=== PATIENT | female | born 1935 | race Caucasian/White ===

== ENCOUNTER → 2016-11-30 | Outpatient (CLI) | payer OTHER, MEDICARE ==
[~2016-11-30] MED LIST: CARV3.12 PO; CPR500 PO; FLNIN NAE; ONDA8TAB7 PO; PRLSR20 PO; SYN75 PO; [UNRECOGNIZED DRUG - CODE] NAE; [UNRECOGNIZED DRUG - CODE] RE
[2016-11-30 10:38] LABS: ALB/GLOB RATIO 1.2 (0.9-2); ALKALINE PHOSPHATASE 86 U/L (45-117); ALT/SGPT 26 U/L (12-78); AST/SGOT 14 U/L (15-37); BLOOD UREA NITROGEN 18 mg/dl (7-18); BUN/CREATININE RATIO 17.9 (10-20); CARBON DIOXIDE 27 mmol/L (21-32); CHLORIDE 106 mmol/L (98-107); CREATININE 0.99 mg/dl (0.60-1.20); GLUCOSE 114 mg/dl (70-99); HDL CHOLESTEROL 56 mg/dl; POTASSIUM 4.3 mmol/L (3.5-5.1); SODIUM 140 mmol/L (136-145)
[2016-11-30 10:50] LABS: CHOLESTEROL 215 mg/dl (0-200); CHOLESTEROL/HDL RATIO 3.8; LDL CHOLESTEROL CALCULATED 128 mg/dl; TRIGLYCERIDES 157 mg/dl (0-150); VERY LOW DENSITY LIPOPROT CALC 31 mg/dl
== END | disposition home or self-care (01) ==
LOC: C.LAB1850 08:31
PROVIDERS: ATTEND Nurse Practitioner Adult Health
DX: E78.5 Hyperlipidemia, unspecified (principal); E03.9 Hypothyroidism, unspecified

== ENCOUNTER → 2016-12-15 | Outpatient (CLI) | payer OTHER, MEDICARE | END | disposition home or self-care (01) | LOC: C.PATHSPEC 16:34 | PROVIDERS: ATTEND Dermatology | DX: B07.9 Viral wart, unspecified (principal); L82.1 Other seborrheic keratosis ==

== ENCOUNTER → 2017-02-02 | Outpatient (CLI) | payer OTHER, MEDICARE | END | disposition home or self-care (01) | LOC: C.PATHSPEC 16:58 | PROVIDERS: ATTEND Dermatology | DX: L82.1 Other seborrheic keratosis (principal) ==

== ENCOUNTER → 2017-04-05 | Outpatient (CLI) | payer OTHER, MEDICARE ==
[2017-04-05 09:38] LABS: BASO % 0.4 %; BASO ABS # 0.02 K/uL (0-0.2); COMPLETE YES; EOS % 3.5 %; HEMATOCRIT 49.1 % (37-47); IG% 0.2 %; LYMPH % 34.9 %; LYMPH ABS # 1.91 K/uL (1.2-3.4); MEAN CELL VOLUME 89.1 fL (80-100); MEAN CORPUSCULAR HEMOGLOBIN 28.7 pg (25-34); MEAN CORPUSCULAR HGB CONC 32.2 g/dl (32-36); MEAN PLATELET VOLUME 10.6 fL (7.4-10.4); MONO % 10.6 %; NEUT % 50.4 %; PLATELET COUNT 239 K/uL (130-400); RED BLOOD COUNT 5.51 M/uL (4.2-5.4); WHITE BLOOD COUNT 5.48 K/uL (4.8-10.8)
[2017-04-05 09:59] LABS: ESTIMATED AVERAGE GLUCOSE 120 mg/dl; HA1C FLAG Normal (Normal)
[2017-04-05 10:05] LABS: ALT/SGPT 23 U/L (12-78); BLOOD UREA NITROGEN 18 mg/dl (7-18); BUN/CREATININE RATIO 16.3 (10-20); CALCIUM 9.2 mg/dl (8.5-10.1); CARBON DIOXIDE 32 mmol/L (21-32); CHLORIDE 102 mmol/L (98-107); CHOLESTEROL 223 mg/dl (0-200); GLUCOSE 101 mg/dl (70-99); POTASSIUM 4.1 mmol/L (3.5-5.1); SODIUM 139 mmol/L (136-145); TRIGLYCERIDES 209 mg/dl (0-150); VERY LOW DENSITY LIPOPROT CALC 42 mg/dl
[2017-04-05 10:18] LABS: ALB/GLOB RATIO 1.1 (0.9-2); ALKALINE PHOSPHATASE 81 U/L (45-117); AST/SGOT 14 U/L (15-37); CHOLESTEROL/HDL RATIO 4.1; HDL CHOLESTEROL 54 mg/dl; LDL CHOLESTEROL CALCULATED 127 mg/dl
== END | disposition home or self-care (01) ==
LOC: C.LAB1850 08:43
PROVIDERS: ATTEND Nurse Practitioner Adult Health
DX: E78.5 Hyperlipidemia, unspecified (principal); R73.9 Hyperglycemia, unspecified; D58.2 Other hemoglobinopathies; R60.0 Localized edema; E03.9 Hypothyroidism, unspecified

== ENCOUNTER → 2017-04-20 | Outpatient (CLI) | payer OTHER, MEDICARE ==
--- NOTE | 2017-04-21 14:21 | MAMMOGRAPHY REPORT ---
BILATERAL DIGITAL SCREENING MAMMOGRAM TOMOSYNTHESIS WITH CAD: 04/20/2017 CLINICAL HISTORY: Routine screening. Patient has no complaints. TECHNIQUE: Breast tomosynthesis in addition to standard 2D mammography was performed. Current study was also evaluated with a Computer Aided Detection (CAD) system. COMPARISON: Comparison is made to exams dated: 05/05/2016 mammogram, 04/16/2016 mammogram, 01/31/2015 ma mmogram, 01/30/2014 mammogram, 01/27/2013 mammogram, and 01/27/2012 mammogram - [facility] nter. BREAST COMPOSITION: There are scattered areas of fibroglandular density in both breasts. FINDINGS: There are scattered benign coarse calcifications in the breasts. No suspicious mass, archi tectural distortion or cluster of microcalcifications is seen. IMPRESSION: ACR BI-RADS CATEGORY 1: NEGATIVE There is no mammographic evidence of malignancy. A 1 year screening mammogram is recommended. The pa tient will receive written notification of the results. Approximately 10% of breast cancers are not detected with mammography. A negative mammographic report should not delay biopsy if a clinically suggestive mass is present. Johana Patrick M.D. ay/:04/20/2017 18:37:24 Dealer Card Room: Mary BALLARD(R)(Arsenio), [facility] letter sent: Normal 1/2 BI-RADS Code: ACR BI-RADS Category 1: Negative
== END | disposition home or self-care (01) ==
LOC: C.MAMM 10:53
PROVIDERS: ATTEND Nurse Practitioner Adult Health
DX: Z12.31 Encounter for screening mammogram for malignant neoplasm of breast (principal)

== ENCOUNTER → 2017-12-01 | Outpatient (CLI) | payer OTHER, MEDICARE ==
[2017-12-01 09:53] LABS: HEMOGLOBIN A1C 5.7 % (4.5-5.6)
[2017-12-01 09:55] LABS: BLOOD UREA NITROGEN 17 mg/dl (7-18); CARBON DIOXIDE 26 mmol/L (21-32); CREATININE 1.05 mg/dl (0.60-1.20); GLUCOSE 115 mg/dl (70-99); POTASSIUM 4.1 mmol/L (3.5-5.1); SODIUM 139 mmol/L (136-145)
== END | disposition home or self-care (01) ==
LOC: C.LAB1850 08:26
PROVIDERS: ATTEND Family Medicine
DX: R73.9 Hyperglycemia, unspecified (principal); E78.5 Hyperlipidemia, unspecified

== ENCOUNTER 2025-02-01 17:53 | Observation (INO) ==
[2025-02-01 18:34] LABS: Basophils # (auto) 0.02 K/uL (0.00-0.20); Basophils % (auto) 0.2 %; Eosinophils # (auto) 0.13 K/uL (0.00-0.50); Eosinophils % (auto) 1.2 %; Hematocrit (blood only) 44.4 % (37.0-47.0); Hemoglobin 15.5 g/dl (12.0-16.0); Immature Granulocytes # (auto) 0.07 K/uL (0.01-0.20); Immature Granulocytes % (auto) 0.6 %; Lymphocytes # (auto) 2.67 K/uL (1.20-3.40); Mean Corpuscular Hemoglobin 32.1 pg (25.0-34.0); Mean Corpuscular Hgb Conc 34.9 g/dL (32.0-36.0); Mean Corpuscular Volume 91.9 fL (80.0-100.0); Mean Platelet Volume 9.8 fL (9.4-12.4); Monocytes # (auto) 1.07 K/uL (0.11-0.59); Monocytes % (auto) 9.6 %; Neutrophils # (auto) 7.17 K/uL (1.40-6.50); Neutrophils % (auto) 64.4 %; Platelet Count 284 K/uL (130-400); RDW Coefficient of Variation 12.4 % (11.5-14.5); RDW Standard Deviation 41.8 fL (36.4-46.3); Red Blood Count 4.83 M/uL (4.20-5.40); White Blood Count 11.13 K/ul (4.8-10.8)
[2025-02-01] MEDS: SODIUM CHLORIDE 0.9% 500 ML IV ONE ×2 (18:35→20:01)
[2025-02-01] MEDS: ONDANSETRON INJ 2 MG/ML 2 ML VIAL IV STA (18:35)
--- NOTE | 2025-02-01 18:36 | Emergency Department Note ---
Impression & Plan Pulmonary embolism, DVT (deep venous thrombosis), Acute hyponatremia ED Provider Note NAME: KACIE SANDY AGE: 89 SEX: F : 1935 ARRIVES VIA: Walk-In INFORMANT: Patient, ED PROVIDER(S): Domingo Padilla DO CHIEF COMPLAINT: Shortness of breath HPI: The patient is an 89-year-old female who presented to the emergency department for an evaluation of shortness of breath. The patient has been experiencing right leg swelling over the course of the last several days. She had an ultrasound today which showed a DVT. She was sent to the emergency department for a CT of the chest. She has been experiencing some dyspnea on exertion. Her daughter does help with a lot of the history given the patient's history of dysarthria. ROS: See above HPI for pertinent positives & negatives. A total of 10 systems reviewed and were otherwise negative. PAST MEDICAL HISTORY: See Below PAST SURGICAL HISTORY: See Below FAMILY HISTORY: See Below SOCIAL HISTORY: See Below HOME MEDICATIONS: See Below ALLERGIES: See Below VITALS: See Below PHYSICAL EXAMINATION: GENERAL: Patient is awake alert in no acute distress patient is resting comfortably and showing no signs of anxiety EYES: The conjunctivae are clear. The pupils are round and reactive. EARS, NOSE, MOUTH AND THROAT: The nose is without any evidence of any deformity. NECK: The neck is nontender and supple. RESPIRATORY: Normal respiratory effort is noted there is no evidence of wheezing rhonchi or rales CARDIOVASCULAR: Regular rate and rhythm noted there no murmurs rubs or gallops normal S1 normal S2. GASTROINTESTINAL: The abdomen is soft. Abdomen is nontender. MUSCULOSKELETAL/EXTREMITIES: There is no evidence of gross deformity full range of motion is noted in the hips and shoulders. SKIN: Skin is warm and dry. Pulses are symmetric in both feet. There is symmetric swelling of the right lower extremity. There is calf tenderness noted. NEUROLOGIC: Patient is awake alert and oriented x3 MEDICAL DECISION MAKING: The patient is an 89-year-old female who presented to the emergency department for an evaluation of leg swelling and difficulty breathing. The patient was diagnosed with a DVT on ultrasound. Because of her shortness of breath further laboratory and radiographic studies were obtained to ensure there is no signs of pulmonary embolism. I discussed the patient's laboratory and radiographic studies with her. She was found to have bilateral pulmonary emboli. Given her clot burden in her leg as well as the presence of pulmonary embolism and heart strain I do feel the patient would be a better candidate for inpatient management. For this reason [facility] agreed to evaluate the patient in the emergency department for further management and disposition. The patient was started on heparin. Triage Nursing notes reviewed. Prior medical records reviewed Vital Signs: reviewed and remarkable for elevated blood pressure. Differential diagnosis: Reactive airway disease, pneumonia, pneumothorax, COPD, CHF, infections, cardiac ischemia, pulmonary embolism, musculoskeletal, gastrointestinal, as well as other pathologies. ER treatment provided: See below Diagnostics interpreted by me: ECG: EKG was obtained in the emergency department. My interpretation is normal sinus rhythm at 94 bpm. Left bundle branch block pattern was noted with LVH. This was compared to a tracing from July 11, 2014. No changes were noted. Cardiac Monitoring: An order was placed for continuous cardiac monitoring. The monitor shows a rate of 87 bpm with sinus rhythm. Laboratory studies: As stated above and show below. Imaging studies: See below. Radiographic imaging was reviewed by myself Consultation(s): I discussed this case with Dr. Carroll who [facility]. ED COURSE: Procedures: none Critical Care: I have personally spent greater than 45 minutes of critical care time in the direct management of this patient. This includes bedside care, interpretation of diagnostic studies, and testing, discussion with consultants, patient, and family members, and other required patient management activities. This 45 minutes is in excess of all separately billable procedures. Past Med/Surg History Problem List (Updated 02/01/25 @ 21:27 by Domingo Padilla DO) Acute hyponatremia (Acute) DVT (deep venous thrombosis) (Acute) Pulmonary embolism (Acute) Painful total knee replacement, left Neuropathy Speech dysfluency Cerebrovascular disease Adverse reaction to penicillin (Acute) Anxiety (Acute) Chronic rhinitis (Acute) Chronic sinusitis (Acute) Dependent edema (Acute) Hyperglycemia (Acute) Hyperlipidemia (Acute) Hypothyroidism (Acute) Insomnia (Acute) Left bundle branch block (Acute) Restless legs syndrome (Acute) Urge and stress incontinence (Acute) Venous insufficiency (Acute) Vitamin D deficiency (Acute) Sensorineural hearing loss of both ears Herniated disc (Chronic) Heart disease (Chronic) 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) HTN (hypertension) (Chronic) Sleep apnea (Chronic) Constipation (Acute) Dyspepsia (Acute) Medical History Wrist fracture, right (~08/09/21) Common bile duct (CBD) obstruction (07/11/14) Kidney stone 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) Surgical History History of lithotripsy History of hysterectomy History of total left knee replacement History of breast biopsy Left Breast Hx of cholecystectomy Family History Father Myocardial infarction Cerebral aneurysm Mother Heart disease Liver disease Denies family history of Colon cancer Ovarian cancer Prostate cancer Breast cancer Social History Smoking Status: Never smoker Second Hand Exposure: No; Do You Dip or Chew Tobacco: No; Hx Alcohol Use: Yes Alcohol type: wine Alcohol Intake Frequency: Monthly or Less Hx Substance Use: No Preferred Language: Cymraes Communication Ability: Impaired Visual Impairment: Limited Hearing Ability: Hard of Hearing Body Recall Instructor Required: No marital status: Current Living Situation: Alone current occupational status: retired How many Children do You have: 4 Feels Safe at Home: Yes Childhood Exposure to Second-Hand Smoke: No Diet: regular caffeine: Yes during the past year weight has: remained stable Dental Care, Regularly: Yes Physical Activity Frequency: Does not Exercise Physical Activity Frequency Comment: infrequent walking Seatbelt Use: always Do you think of yourself as: straight/heterosexual Assistive Devices: Cane, Glasses and Walker Allergies Allergies Allergy/AdvReac Type Severity Reaction Status Date / Time morphine Allergy Severe swelling Verified 02/01/25 21:16 of throat aspirin AdvReac Unknown hx ulcers Verified 02/01/25 21:16 piperacillin AdvReac Unknown ???rxn, Verified 02/01/25 21:16 redness at IV site, improved when IV stopped tazobactam AdvReac Unknown ???rxn, Verified 02/01/25 21:16 redness at IV site, improved when IV stopped Codeine Derivatives Allergy Unknown Unknown Uncoded 02/01/25 21:16 Home Meds Home Medications Medication Instructions Recorded Confirmed amlodipine 5 mg tablet 5 mg PO DAILYBB 02/01/25 02/01/25 ashwagandha root extract 300 mg 300 mg PO DAILY 02/01/25 02/01/25 capsule carvedilol 3.125 mg tablet 3.125 mg PO DAILY 02/01/25 02/01/25 celecoxib 100 mg capsule 100 mg PO DAILY 02/01/25 02/01/25 cholecalciferol (vitamin D3) 10 10 mcg PO DAILY 02/01/25 02/01/25 mcg (400 unit) capsule (Vitamin D3) cyanocobalamin (vitamin B-12) 25 25 mcg PO DAILY 02/01/25 02/01/25 mcg tablet gabapentin 100 mg capsule 200 mg PO DAILY 02/01/25 02/01/25 magnesium 200 mg tablet 200 mg PO DAILY 02/01/25 02/01/25 zinc 10 mg tablet 10 mg PO DAILY 02/01/25 02/01/25 Previous Rx's Medication Instructions Recorded ivermectin 3 mg tablet See Rx Instructions PO DAILY #1 tab 11/18/23 levothyroxine 100 mcg tablet 100 mcg PO DAILY #90 tabs 09/13/24 Results & Data (ED) Vital Signs Vital Signs - 24 hr 02/01/25 18:00 02/01/25 18:30 02/01/25 18:31 Temperature 36.5 C Temperature Source Temporal Artery Scan Pulse Rate 98 H 89 Pulse Rate [Finger] Pulse Rate from SpO2 Sensor 84 Pulse Rhythm [Finger] Pulse Strength [Finger] Respiratory Rate 18 28 H Respiratory Effort / Characteristics Non-Labored Spontaneous Respiratory Depth Normal Respiratory Pattern Blood Pressure 154/92 H 193/92 H Blood Pressure [Right Arm] Blood Pressure Mean 112 125 Blood Pressure Mean [Right Arm] Blood Pressure Position Sitting Blood Pressure Position [Right Arm] Pulse Oximetry 97 97 Oxygen Delivery Method Room Air Room Air Sepsis Recent Fever Within 48 Hours No Sepsis New/Unexplained Change in Mental Status No Sepsis Action Taken by Nursing No Action Required 02/01/25 18:34 02/01/25 19:00 02/01/25 19:30 Temperature Temperature Source Pulse Rate 85 83 Pulse Rate [Finger] 83 Pulse Rate from SpO2 Sensor Pulse Rhythm [Finger] Regular Pulse Strength [Finger] Normal Respiratory Rate 20 22 Respiratory Effort / Characteristics Non-Labored Spontaneous Respiratory Depth Normal Respiratory Pattern Regular Blood Pressure 194/85 H Blood Pressure [Right Arm] 169/72 H Blood Pressure Mean 147 Blood Pressure Mean [Right Arm] 104 Blood Pressure Position Blood Pressure Position [Right Arm] Lying Pulse Oximetry 95 94 Oxygen Delivery Method Room Air Sepsis Recent Fever Within 48 Hours Sepsis New/Unexplained Change in Mental Status Sepsis Action Taken by Nursing 02/01/25 20:00 02/01/25 20:10 02/01/25 20:10 Temperature Temperature Source Pulse Rate 82 84 Pulse Rate [Finger] Pulse Rate from SpO2 Sensor Pulse Rhythm [Finger] Pulse Strength [Finger] Respiratory Rate 22 22 Respiratory Effort / Characteristics Respiratory Depth Respiratory Pattern Blood Pressure 204/80 H 178/90 H 178/90 H Blood Pressure [Right Arm] Blood Pressure Mean 149 152 152 Blood Pressure Mean [Right Arm] Blood Pressure Position Blood Pressure Position [Right Arm] Pulse Oximetry 94 94 Oxygen Delivery Method Sepsis Recent Fever Within 48 Hours Sepsis New/Unexplained Change in Mental Status Sepsis Action Taken by Nursing 02/01/25 20:11 02/01/25 20:15 02/01/25 20:30 Temperature Temperature Source Pulse Rate 85 Pulse Rate [Finger] 95 H 82 Pulse Rate from SpO2 Sensor Pulse Rhythm [Finger] Regular Regular Pulse Strength [Finger] Respiratory Rate 20 22 20 Respiratory Effort / Characteristics Non-Labored Spontaneous Non-Labored Spontaneous Respiratory Depth Normal Normal Respiratory Pattern Regular Regular Blood Pressure 169/109 H Blood Pressure [Right Arm] 178/90 H 151/76 H Blood Pressure Mean 141 Blood Pressure Mean [Right Arm] 119 101 Blood Pressure Position Blood Pressure Position [Right Arm] Pulse Oximetry 96 95 95 Oxygen Delivery Method Room Air Room Air Sepsis Recent Fever Within 48 Hours Sepsis New/Unexplained Change in Mental Status Sepsis Action Taken by Nursing 02/01/25 20:30 02/01/25 20:45 02/01/25 21:00 Temperature Temperature Source Pulse Rate 84 83 87 Pulse Rate [Finger] Pulse Rate from SpO2 Sensor 83 Pulse Rhythm [Finger] Pulse Strength [Finger] Respiratory Rate 22 24 24 Respiratory Effort / Characteristics Respiratory Depth Respiratory Pattern Blood Pressure 151/76 H 160/73 H 176/79 H Blood Pressure [Right Arm] Blood Pressure Mean 101 111 146 Blood Pressure Mean [Right Arm] Blood Pressure Position Blood Pressure Position [Right Arm] Pulse Oximetry 95 94 93 Oxygen Delivery Method Sepsis Recent Fever Within 48 Hours Sepsis New/Unexplained Change in Mental Status Sepsis Action Taken by Longterm Medications Current Medication List: was personally reviewed by me Laboratory Data Attestation: I reviewed the patient's lab results. 02/01/25 18:13 02/01/25 18:13 Lab Results 02/01/25 02/01/25 Range/Units 18:13 20:05 WBC 11.13 H (4.8-10.8) K/ul RBC 4.83 (4.20-5.40) M/uL Hgb 15.5 (12.0-16.0) g/dl Hct 44.4 (37.0-47.0) % MCV 91.9 (80.0-100.0) fL MCH 32.1 (25.0-34.0) pg MCHC 34.9 (32.0-36.0) g/dL RDW Std Deviation 41.8 (36.4-46.3) fL RDW Coeff of Xochitl 12.4 (11.5-14.5) % Plt Count 284 (130-400) K/uL MPV 9.8 (9.4-12.4) fL Immature Gran % (Auto) 0.6 % Neut % (Auto) 64.4 % Lymph % (Auto) 24.0 % [place] % (Auto) 9.6 % Eos % (Auto) 1.2 % Baso % (Auto) 0.2 % Neut # (Auto) 7.17 H (1.40-6.50) K/uL Lymph # (Auto) 2.67 (1.20-3.40) K/uL [place] # (Auto) 1.07 H (0.11-0.59) K/uL Eos # (Auto) 0.13 (0.00-0.50) K/uL Baso # (Auto) 0.02 (0.00-0.20) K/uL Immature Gran # (Auto) 0.07 (0.01-0.20) K/uL PT 10.3 (9.0-12.0) Seconds INR 0.9 (0.9-1.1) APTT 27 (21-31) Seconds PTT Ratio 1.0 Sodium 127 L (136-145) mmol/L Potassium 5.4 H (3.5-5.1) mmol/L Chloride 91 L (98-107) mmol/L Carbon Dioxide 26 (21-32) mmol/L Anion Gap 10 (3-11) BUN 26 H (6-23) mg/dl Creatinine 1.33 H (0.6-1.2) mg/dl Est Cr Clr Drug Dosing Not Reportable eGFR 38.48 BUN/Creatinine Ratio 19.5 (10-20) Glucose 131 H (70-99(Fasting)) mg/dl Calcium 10.3 (8.6-10.3) mg/dl Total Bilirubin 1.5 H (0.2-1.0) mg/dl AST 22 (13-39) U/L ALT 15 (7-52) U/L Alkaline Phosphatase 102 (34-104) U/L Troponin I High Sens 8.6 (0-14) pg/ml Total Protein 7.2 (6.0-8.3) gm/dl Albumin 3.9 (3.4-5.0) gm/dl Globulin 3.3 (2.5-4.0) gm/dl Albumin/Globulin Ratio 1.2 (0.9-2) Urine Color Yellow Urine Appearance Clear (Clear) Urine pH 5.5 (4.5-7.5) Ur Specific [place] 1.022 (1.000-1.030) Urine Protein Negative (Negative) Urine Glucose (UA) Negative (Negative) Urine Ketones Negative (Negative) Urine Blood Negative (Negative) Urine Nitrite Negative (Negative) Urine Bilirubin Negative (Negative) Urine Urobilinogen Negative (Negative) Ur Leukocyte Esterase Negative (Negative) Urine Comment Administered Medications Heparin Sodium/Dextrose (Heparin 57501 Unit/500 Ml D5w) 25,000 units in 500 mls @ 24 mls/hr IV .[id number] [facility]; Protocol Stop: 03/03/25 19:44 Last Titration: 02/01/25 20:12 Dose: 1,200 units/hr, 24 mls/hr Documented By: JAYY Co-signed By: MATT Titration: 02/01/25 20:04 Dose: 0 units/hr, 0 mls/hr Documented By: MATT Co-signed By: JAYY Admin: 02/01/25 19:57 Dose: 1,200 units/hr, 24 mls/hr Documented By: MATT Co-signed By: JAYY Discontinued Medications Amlodipine Besylate (Amlodipine Besylate 5 Mg Tab) 5 mg PO NOW ONE Stop: 02/01/25 20:16 Last Admin: 06/26/25 21:02 Dose: 5 mg Documented By: MATT Heparin Sodium/Dextrose (Heparin Iv Adult Wt-Based Standard *No* Initial Bolus Protocol) 1 each IV ONE STA; Protocol Stop: 02/01/25 19:21 Last Admin: 02/01/25 19:57 Dose: Not Given Documented By: MATT Sodium Chloride (Nss) 500 mls @ 999 mls/hr IV .Q31M ONE Stop: 02/01/25 19:01 Last Infusion: 02/01/25 19:45 Dose: Infused Documented By: Admin: 02/01/25 18:35 Dose: 999 mls/hr Documented By: MANN Sodium Chloride (Nss) 500 mls @ 999 mls/hr IV .Q31M ONE Stop: 02/01/25 19:41 Last Infusion: 02/01/25 21:00 Dose: Infused Documented By: Infusion: 02/01/25 20:30 Dose: 999 mls/hr Documented By: Infusion: 02/01/25 20:04 Dose: 0 mls/hr Documented By: Admin: 02/01/25 20:01 Dose: 999 mls/hr Documented By: MATT Ioversol (Optiray 320 125ml) 115 ml IV ONCE ONE Stop: 02/01/25 18:42 Last Admin: 02/01/25 18:41 Dose: 115 ml Documented By: MAL Ondansetron HCl (Ondansetron Inj 2 Mg/Ml 2 Ml Vial) 4 mg IV NOW STA Stop: 02/01/25 18:32 Last Admin: 02/01/25 18:35 Dose: 4 mg Documented By: MANN Imaging Data Attestation: I personally reviewed and interpreted this imaging study as follows: My Impression: CTA of the chest was obtained in the emergency department. My interpretation is no free air, signs of pulmonary [place] were noted. Final report below. Radiologist's Impression: Chest CTA 02/01/25 18:26 CT PULMONARY ANGIOGRAM. HISTORY: Chest pain TECHNIQUE: Enhanced CT examination of the chest was performed using pulmonary embolism protocol. IV CONTRAST: 100 mL of OMNIPAQUE 300 COMPARISON: None FINDINGS: PULMONARY ARTERIES: There are bilateral acute pulmonary emboli. On the right side there is embolus in the distal main pulmonary artery with extensions into the segmental and subsegmental branches of all lobes. On the left side there are pulmonary emboli in the segmental and subsegmental branches of the left upper lobe. LYMPH NODES: No lymphadenopathy by size criteria. CARDIOVASCULAR: Enlarged cardiac size. Mild right heart strain is present at this time. No pericardial effusion. No aortic aneurysm. Extensive atherosclerosis of the thoracic aorta. There are coronary artery calcifications in keeping with coronary artery disease. Valvular calcifications MEDIASTINUM: No solid or cystic mediastinal masses. The esophagus is normally decompressed. LUNGS/PLEURA: The central tracheo-bronchial tree is patent. Small focal density in the right lung base could represent atelectasis, pneumonia or possibly a pulmonary infarct. Mild bronchiolitis in the right middle lobe. No pleural effusion or pneumothorax. No suspicious pulmonary nodules. BONES: No suspicious osseous lesions. VISUALIZED LOWER NECK: Subcentimeter thyroid nodules. VISUALIZED UPPER ABDOMEN: Cholecystectomy. Duodenal diverticula. IMPRESSION: Bilateral pulmonary emboli as above. Cardiomegaly with mild right heart strain. Small focal density in the right lung base could represent atelectasis, pneumonia or possibly a pulmonary infarct. Mild bronchiolitis in the right middle lobe. Notification to clinician of alert: [facility] ED was notified about above findings by phone on February 01, 2025 at 7:17 PM by Crescencio Richard MD. Readback confirmation was obtained. Electronically signed by Crescencio Richard 02-01-2025 7:20 PM Discharge Plan Visit Data Chief Complaint: Referred by Doctor Stated Complaint: BLOOD CLOT, REF BY ED Provider: Domingo Padilla Discharge Problem: Pulmonary embolism, DVT (deep venous thrombosis), Acute hyponatremia Patient Disposition: Being Evaluated by Hospitalist Condition: Fair Forms Stand Alone Forms: My [facility] Prescriptions Prescriptions: No Action levothyroxine 100 mcg tablet 100 mcg PO DAILY Qty: 90 1RF ivermectin 3 mg tablet See Rx Instructions PO DAILY Qty: 1 0RF Rx Instructions: Patient self prescribing weight based orally daily; gabapentin 100 mg capsule 200 mg PO DAILY zinc 10 mg Tablet 10 mg PO DAILY magnesium 200 mg Tablet 200 mg PO DAILY cyanocobalamin (vitamin B-12) 25 mcg Tablet 25 mcg PO DAILY cholecalciferol (vitamin D3) [Vitamin D3] 10 mcg (400 unit) Capsule 10 mcg PO DAILY ashwagandha root extract 300 mg Capsule 300 mg PO DAILY amlodipine 5 mg tablet 5 mg PO DAILYBB carvedilol 3.125 mg tablet 3.125 mg PO DAILY celecoxib 100 mg capsule 100 mg PO DAILY Referrals Referrals: Hollie Mcfadden MD [Primary Care Provider] -
[2025-02-01] MEDS: OPTIRAY 320 125ml IV ONE (18:41)
[2025-02-01 18:53] LABS: Alanine Aminotransferase 15 U/L (7-52); Albumin Globulin Ratio 1.2 (0.9-2); Alkaline Phosphatase 102 U/L (34-104); Anion Gap 10 (3-11); Aspartate Aminotransferase 22 U/L (13-39); BUN Creatinine Ratio 19.5 (10-20); Bilirubin,Total 1.5 mg/dl (0.2-1.0); Blood Urea Nitrogen 26 mg/dl (6-23); Calcium 10.3 mg/dl (8.6-10.3); Carbon Dioxide 26 mmol/L (21-32); Chloride 91 mmol/L (98-107); Globulin 3.3 gm/dl (2.5-4.0); Glucose 131 mg/dl (70-99(Fasting)); Potassium 5.4 mmol/L (3.5-5.1); Sodium 127 mmol/L (136-145); Total Protein 7.2 gm/dl (6.0-8.3)
[2025-02-01 19:00] LABS: Troponin I High Sensitivity 8.6 pg/ml (0-14)
[2025-02-01 19:03] LABS: INR 0.9 (0.9-1.1); Partial Thromboplastin Time 27 Seconds (21-31); Prothrombin Time 10.3 Seconds (9.0-12.0)
--- NOTE | 2025-02-01 19:20 | CT Scan Report ---
CT PULMONARY ANGIOGRAM. HISTORY: Chest pain TECHNIQUE: Enhanced CT examination of the chest was performed using pulmonary embolism protocol. IV CONTRAST: 100 mL of OMNIPAQUE 300 COMPARISON: None FINDINGS: PULMONARY ARTERIES: There are bilateral acute pulmonary emboli. On the right side there is embolus in the distal main pulmonary artery with extensions into the segmental and subsegmental branches of all lobes. On the left side there are pulmonary emboli in the segmental and subsegmental branches of the left upper lobe. LYMPH NODES: No lymphadenopathy by size criteria. CARDIOVASCULAR: Enlarged cardiac size. Mild right heart strain is present at this time. No pericardial effusion. No aortic aneurysm. Extensive atherosclerosis of the thoracic aorta. There are coronary artery calcifications in keeping with coronary artery disease. Valvular calcifications MEDIASTINUM: No solid or cystic mediastinal masses. The esophagus is normally decompressed. LUNGS/PLEURA: The central tracheo-bronchial tree is patent. Small focal density in the right lung base could represent atelectasis, pneumonia or possibly a pulmonary infarct. Mild bronchiolitis in the right middle lobe. No pleural effusion or pneumothorax. No suspicious pulmonary nodules. BONES: No suspicious osseous lesions. VISUALIZED LOWER NECK: Subcentimeter thyroid nodules. VISUALIZED UPPER ABDOMEN: Cholecystectomy. Duodenal diverticula. IMPRESSION: Bilateral pulmonary emboli as above. Cardiomegaly with mild right heart strain. Small focal density in the right lung base could represent atelectasis, pneumonia or possibly a pulmonary infarct. Mild bronchiolitis in the right middle lobe. Notification to clinician of alert: [facility] was notified about above findings by phone on February 01, 2025 at 7:17 PM by Crescencio Richard MD. Readback confirmation was obtained. Electronically signed by Crescencio Richard 02-01-2025 7:20 PM
[2025-02-01] MEDS: Heparin IV Adult Wt-Based Standard *NO* INITIAL Bolus Protocol IV STA (19:57)
[2025-02-01] MEDS: HEPARIN 25000 UNIT/500 ML D5W 25,000 UNITS/500 ML BAG IV SCH (19:57)
--- NOTE | 2025-02-01 20:22 | History & Physical Report ---
Date of Service February 01, 2025 Assessment & Plan (1) Pulmonary embolism: (2) Acute hyponatremia: (3) Hypothyroidism: Plan 89-year-old female presenting with 2 weeks of right lower extremity swelling and redness as well as dyspnea on exertion and shortness of breath. Patient found to have bilateral pulmonary emboli with cardiomegaly and mild right heart strain noted. Small focus in the right lung base could represent atelectasis, pneumonia or possible pulmonary infarct. Also with mild bronchiolitis in the right middle lobe Patient with no prior VTE. She is rather sedentary in her daily life but otherwise no acute risks to predispose her to clotting #PEpatient hypertensive, adequate oxygenation on room air. PESI score - patient at high risk for severe morbidity given advanced age. Otherwise HD stable. Shock index is within normal limits Suspect RLE DVT as source of PE -Admit to PCU -Continue Heparin gtt -Check 2D echo -Patient will likely need 3-6 months of anticoagulation on discharge #Acute hyponatremia - Dn=[id number]. Last 140. -Check Urine and serum osmolality -Check random urine Na -Repeat chemistry in AM #Hypertension - patient with elevated blood pressures. Reports that her BP is typically 130-140's at home. She is compliant with her home medications -Continue Amlodipine 5mg po qPM -Continue Carvedilol - patient takes this daily, will increase to 3.125mg po BID -Continue to monitor #Hypothyroidism - TSH last checked 12/18/24, WNL at 1.472 -Continue Synthroid History of Present Illness Chief Complaint: RLE pain and swelling, SOB Primary Care Provider: Hollie Mcfadden MD Manjula Taylor is a pleasant 89-year-old female with history of chronic dysarthria presenting with 2 weeks of right lower extremity redness, swelling as well as shortness of breath and dyspnea on exertion. Patient denies chest pain, palpitations, dizziness or syncope or pleuritic pain. Patient with chronic severe arthritis making it difficult to ambulate. Therefore, she spends a lot of her day sitting in a chair. No history of prior VTE, no recent trauma, no periods of immobilization No additional complaints at this time In the ER patient is afebrile, hypertensive otherwise stable. Adequate ox[place] on room air ER course: Normal saline x 1 L Zofran 4 mg IV Heparin drip initiated Amlodipine 5 mg p.o. Allergies Allergy/AdvReac Type Severity Reaction Status Date / Time morphine Allergy Severe swelling Verified 02/01/25 21:16 of throat aspirin AdvReac Unknown hx ulcers Verified 02/01/25 21:16 codeine AdvReac Unknown Unknown Verified 02/01/25 21:55 piperacillin AdvReac Unknown ???rxn, Verified 02/01/25 21:16 redness at IV site, improved when IV stopped tazobactam AdvReac Unknown ???rxn, Verified 02/01/25 21:16 redness at IV site, improved when IV stopped Home Medications Medication Instructions Recorded Confirmed Type ivermectin 3 mg tablet See Rx Instructions PO DAILY #1 tab 11/18/23 02/01/25 Rx levothyroxine 100 mcg tablet 100 mcg PO DAILY #90 tabs 09/13/24 02/01/25 Rx amlodipine 5 mg tablet 5 mg PO DAILYBB 02/01/25 02/01/25 History ashwagandha root extract 300 mg 300 mg PO DAILY 02/01/25 02/01/25 History capsule carvedilol 3.125 mg tablet 3.125 mg PO DAILY 02/01/25 02/01/25 History celecoxib 100 mg capsule 100 mg PO DAILY 02/01/25 02/01/25 History cholecalciferol (vitamin D3) 10 10 mcg PO DAILY 02/01/25 02/01/25 History mcg (400 unit) capsule (Vitamin D3) cyanocobalamin (vitamin B-12) 25 25 mcg PO DAILY 02/01/25 02/01/25 History mcg tablet gabapentin 100 mg capsule 200 mg PO DAILY 02/01/25 02/01/25 History magnesium 200 mg tablet 200 mg PO DAILY 02/01/25 02/01/25 History zinc 10 mg tablet 10 mg PO DAILY 02/01/25 02/01/25 History Past Med/Surg History Problem List Acute hyponatremia (Acute) DVT (deep venous thrombosis) (Acute) Pulmonary embolism (Acute) Painful total knee replacement, left Neuropathy Speech dysfluency Cerebrovascular disease Adverse reaction to penicillin (Acute) Anxiety (Acute) Chronic rhinitis (Acute) Chronic sinusitis (Acute) Dependent edema (Acute) Hyperglycemia (Acute) Hyperlipidemia (Acute) Hypothyroidism (Acute) Insomnia (Acute) Left bundle branch block (Acute) Restless legs syndrome (Acute) Urge and stress incontinence (Acute) Venous insufficiency (Acute) Vitamin D deficiency (Acute) Sensorineural hearing loss of both ears Herniated disc (Chronic) Heart disease (Chronic) 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) HTN (hypertension) (Chronic) Sleep apnea (Chronic) Constipation (Acute) Dyspepsia (Acute) Medical History Wrist fracture, right (~08/09/21) Common bile duct (CBD) obstruction (07/11/14) Kidney stone 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) Surgical History History of lithotripsy History of hysterectomy History of total left knee replacement History of breast biopsy Left Breast Hx of cholecystectomy Family History Father Myocardial infarction Cerebral aneurysm Mother Heart disease Liver disease Denies family history of Colon cancer Ovarian cancer Prostate cancer Breast cancer Social History Smoking Status: Never smoker Second Hand Exposure: No; Do You Dip or Chew Tobacco: No; Hx Alcohol Use: No Hx Substance Use: No Preferred Language: [place]ijani Communication Ability: Effective Visual Impairment: Limited Hearing Ability: Hard of Hearing Publishing Editor Required: No Beliefs That Will Affect Care: None marital status: Current Living Situation: Alone current occupational status: retired How many Children do You have: 4 Other Information That Helps Us Care for You: No Feels Safe at Home: Yes Safety Concerns: Feels Safe At This Time Childhood Exposure to Second-Hand Smoke: No Diet: regular caffeine: Yes during the past year weight has: remained stable Dental Care, Regularly: Yes Physical Activity Frequency: Does not Exercise Physical Activity Frequency Comment: infrequent walking Seatbelt Use: always Do you think of yourself as: straight/heterosexual Assistive Devices: Cane and Walker Review of Systems Review of Systems: All systems reviewed & are unremarkable except as noted in HPI & below Physical Exam Physical Exam: General: patient resting comfortably, NAD, non-toxic in appearance, AA&O x 4 Skin: warm, dry, intact, no rashes or lesions HEENT: NC/AT, PERRL, EOMI, anicteric sclera, conjunctiva without injection, external ear normal to inspection and nontender, nares patent, moist mucus membranes, dentition intact, no oropharyngeal lesions, neck supple, trachea midline, no LAD, no thyromegaly, no JVD Heart: +S1/S2, regular, no m/r/g Lungs: equal air entry bilaterally, no rales/rhonchi/wheezes Abd: +BS, soft, NT/ND, no masses/organomegaly/ascites Ext: warm, 2+ pulses in UE/LE bilaterally, no clubbing/cyanosis Right lower extremity warm, erythematous, edematous with some tenderness in the posterior calf Neuro: nonfocal, patient AA&O x 4, dysarthric speech noted to be baseline, no facial droop, moving all extremities on command with equal strength 5/5 Results & Data Results & Data Vital Signs (Past 12 Hours) Vital Signs Temp Pulse Pulse Resp BP BP Pulse Ox 02/01/25 20:11 95 H 20 178/90 H 96 02/01/25 19:00 83 20 169/72 H 95 02/01/25 18:34 85 02/01/25 18:31 02/01/25 18:00 36.5 C 98 H 18 154/92 H 97 O2 Del Method 02/01/25 20:11 Room Air 02/01/25 19:00 Room Air 02/01/25 18:34 02/01/25 18:31 Room Air 02/01/25 18:00 Room Air Laboratory Results Laboratory Results WBC 11.13 K/ul (4.8-10.8) H 02/01/25 18:13 RBC 4.83 M/uL (4.20-5.40) 02/01/25 18:13 Hgb 15.5 g/dl (12.0-16.0) 02/01/25 18:13 Hct 44.4 % (37.0-47.0) 02/01/25 18:13 MCV 91.9 fL (80.0-100.0) 02/01/25 18:13 MCH 32.1 pg (25.0-34.0) 02/01/25 18:13 MCHC 34.9 g/dL (32.0-36.0) 02/01/25 18:13 RDW Std Deviation 41.8 fL (36.4-46.3) 02/01/25 18:13 RDW Coeff of Xochitl 12.4 % (11.5-14.5) 02/01/25 18:13 Plt Count 284 K/uL (130-400) 02/01/25 18:13 MPV 9.8 fL (9.4-12.4) 02/01/25 18:13 Immature Gran % (Auto) 0.6 % 02/01/25 18:13 Neut % (Auto) 64.4 % 02/01/25 18:13 Lymph % (Auto) 24.0 % 02/01/25 18:13 [place] % (Auto) 9.6 % 02/01/25 18:13 Eos % (Auto) 1.2 % 02/01/25 18:13 Baso % (Auto) 0.2 % 02/01/25 18:13 Neut # (Auto) 7.17 K/uL (1.40-6.50) H 02/01/25 18:13 Lymph # (Auto) 2.67 K/uL (1.20-3.40) 02/01/25 18:13 [place] # (Auto) 1.07 K/uL (0.11-0.59) H 02/01/25 18:13 Eos # (Auto) 0.13 K/uL (0.00-0.50) 02/01/25 18:13 Baso # (Auto) 0.02 K/uL (0.00-0.20) 02/01/25 18:13 Immature Gran # (Auto) 0.07 K/uL (0.01-0.20) 02/01/25 18:13 PT 10.3 Seconds (9.0-12.0) 02/01/25 18:13 INR 0.9 (0.9-1.1) 02/01/25 18:13 APTT 27 Seconds (21-31) 02/01/25 18:13 PTT Ratio 1.0 02/01/25 18:13 Sodium 127 mmol/L (136-145) L 02/01/25 18:13 Potassium 5.4 mmol/L (3.5-5.1) H 02/01/25 18:13 Chloride 91 mmol/L (98-107) L 02/01/25 18:13 Carbon Dioxide 26 mmol/L (21-32) 02/01/25 18:13 Anion Gap 10 (3-11) 02/01/25 18:13 BUN 26 mg/dl (6-23) H 02/01/25 18:13 Creatinine 1.33 mg/dl (0.6-1.2) H 02/01/25 18:13 Est Cr Clr Drug Dosing Not Reportable 02/01/25 18:13 eGFR 38.48 02/01/25 18:13 BUN/Creatinine Ratio 19.5 (10-20) 02/01/25 18:13 Glucose 131 mg/dl (70-99(Fasting)) H 02/01/25 18:13 Osmolality 277 mOsm/kg (280-300) L 02/01/25 18:13 Calcium 10.3 mg/dl (8.6-10.3) 02/01/25 18:13 Total Bilirubin 1.5 mg/dl (0.2-1.0) H 02/01/25 18:13 AST 22 U/L (13-39) 02/01/25 18:13 ALT 15 U/L (7-52) 02/01/25 18:13 Alkaline Phosphatase 102 U/L (34-104) 02/01/25 18:13 Troponin I High Sens 8.6 pg/ml (0-14) 02/01/25 18:13 Total Protein 7.2 gm/dl (6.0-8.3) 02/01/25 18:13 Albumin 3.9 gm/dl (3.4-5.0) 02/01/25 18:13 Globulin 3.3 gm/dl (2.5-4.0) 02/01/25 18:13 Albumin/Globulin Ratio 1.2 (0.9-2) 02/01/25 18:13 Urine Color Yellow 02/01/25 20:05 Urine Appearance Clear (Clear) 02/01/25 20:05 Urine pH 5.5 (4.5-7.5) 02/01/25 20:05 Ur Specific [place] 1.022 (1.000-1.030) 02/01/25 20:05 Urine Protein Negative (Negative) 02/01/25 20:05 Urine Glucose (UA) Negative (Negative) 02/01/25 20:05 Urine Ketones Negative (Negative) 02/01/25 20:05 Urine Blood Negative (Negative) 02/01/25 20:05 Urine Nitrite Negative (Negative) 02/01/25 20:05 Urine Bilirubin Negative (Negative) 02/01/25 20:05 Urine Urobilinogen Negative (Negative) 02/01/25 20:05 Ur Leukocyte Esterase Negative (Negative) 02/01/25 20:05 Urine Comment 02/01/25 20:05 Impressions Chest CTA 02/01/25 18:26 CT PULMONARY ANGIOGRAM. HISTORY: Chest pain TECHNIQUE: Enhanced CT examination of the chest was performed using pulmonary embolism protocol. IV CONTRAST: 100 mL of OMNIPAQUE 300 COMPARISON: None FINDINGS: PULMONARY ARTERIES: There are bilateral acute pulmonary emboli. On the right side there is embolus in the distal main pulmonary artery with extensions into the segmental and subsegmental branches of all lobes. On the left side there are pulmonary emboli in the segmental and subsegmental branches of the left upper lobe. LYMPH NODES: No lymphadenopathy by size criteria. CARDIOVASCULAR: Enlarged cardiac size. Mild right heart strain is present at this time. No pericardial effusion. No aortic aneurysm. Extensive atherosclerosis of the thoracic aorta. There are coronary artery calcifications in keeping with coronary artery disease. Valvular calcifications MEDIASTINUM: No solid or cystic mediastinal masses. The esophagus is normally decompressed. LUNGS/PLEURA: The central tracheo-bronchial tree is patent. Small focal density in the right lung base could represent atelectasis, pneumonia or possibly a pulmonary infarct. Mild bronchiolitis in the right middle lobe. No pleural effusion or pneumothorax. No suspicious pulmonary nodules. BONES: No suspicious osseous lesions. VISUALIZED LOWER NECK: Subcentimeter thyroid nodules. VISUALIZED UPPER ABDOMEN: Cholecystectomy. Duodenal diverticula. IMPRESSION: Bilateral pulmonary emboli as above. Cardiomegaly with mild right heart strain. Small focal density in the right lung base could represent atelectasis, pneumonia or possibly a pulmonary infarct. Mild bronchiolitis in the right middle lobe. Notification to clinician of alert: [facility] was notified about above findings by phone on February 01, 2025 at 7:17 PM by Crescencio Richard MD. Readback confirmation was obtained. Electronically signed by Crescencio Richard 02-01-2025 7:20 PM ECG Additional Comments: EKG per my interpretation with normal sinus rhythm at 94 bpm, no acute ischemic changes Suggestive of LVH Code Status & VTE Plan VTE Prophylaxis Plan VTE Prophylaxis will be ordered: Yes PG Care Time/CCT Total # of Minutes Spent Total Time Spent with Patient: Total time spent is greater than 50% in coordination of care (as documented) at patient's floor/unit and/or counseling patient: Coding Level of Care Code 00850 INT INP/OBS CARE 3/75MIN Diagnoses Pulmonary embolism I26.99 Acute hyponatremia E87.1 Hypothyroidism E03.9
[2025-02-01 20:29] LABS: Appearance Urine Clear (Clear); Bilirubin Urine Negative (Negative); Blood Urine Negative (Negative); Color Urine Yellow; Glucose Urine UA Negative (Negative); Ketones Urine Negative (Negative); Leukocyte Esterase Urine Negative (Negative); Nitrite Urine Negative (Negative); Protein Urine Negative (Negative); Specific Gravity Urine 1.022 (1.000-1.030); Urobilinogen Urine Negative (Negative); pH Urine 5.5 (4.5-7.5)
[2025-02-01] MEDS: amLODIPine BESYLATE 5 MG TAB PO ONE (21:02)
[2025-02-01] MEDS ORDERED: ONDANSETRON INJ 2 MG/ML 2 ML VIAL IV PRN (21:52)
[2025-02-01] MEDS ORDERED: ACETAMINOPHEN 325 MG TAB PO PRN (21:52)
[2025-02-01] MEDS ORDERED: DOCUSATE SODIUM 100 MG CAP PO PRN (21:52)
[2025-02-01] MEDS: LACTATED RINGER'S 1,000 ML IV SCH (22:15)
[2025-02-01] MEDS: SODIUM CHLORIDE 0.9% 500 ML IV SCH (22:24)
[2025-02-02 02:55] LABS: ANTI-Xa, UFH(UnfractionatedHep 0.69 IU/ml (0.3-0.7)
[2025-02-02] MEDS: LEVOTHYROXINE SODIUM 100 MCG TABLET PO SCH (06:02)
[2025-02-02 06:36] LABS: Hematocrit (blood only) 37.6 % (37.0-47.0); Hemoglobin 12.5 g/dl (12.0-16.0); Mean Corpuscular Hemoglobin 30.9 pg (25.0-34.0); Mean Corpuscular Hgb Conc 33.2 g/dL (32.0-36.0); Mean Corpuscular Volume 93.1 fL (80.0-100.0); Mean Platelet Volume 10.1 fL (9.4-12.4); Platelet Count 223 K/uL (130-400); RDW Coefficient of Variation 12.5 % (11.5-14.5); RDW Standard Deviation 43.3 fL (36.4-46.3); Red Blood Count 4.04 M/uL (4.20-5.40); White Blood Count 7.19 K/ul (4.8-10.8)
[2025-02-02 06:57] LABS: ANTI-Xa, UFH(UnfractionatedHep 0.86 IU/ml (0.3-0.7)
[2025-02-02 07:10] LABS: Potassium 4.2 mmol/L (3.5-5.1)
[2025-02-02 07:21] VITALS: RESP 16; TEMP 97.9
[2025-02-02 07:28] LABS: BUN Creatinine Ratio 20.9 (10-20); Creatinine Clr Calc Pharmacy 44.7 ml/min
[2025-02-02] MEDS: GABAPENTIN 100 MG CAP PO SCH (08:51)
[2025-02-02] MEDS: carvediloL 3.125 MG TAB PO SCH (08:52)
[2025-02-02 12:05] VITALS: BP 142/80; PULSE 75; O2SAT 94
--- NOTE | 2025-02-02 13:37 | Discharge Summary ---
Date of Service February 02, 2025 Admission HPI Per Admitting Provider Manjula Taylor is a pleasant 89-year-old female with history of chronic dysarthria presenting with 2 weeks of right lower extremity redness, swelling as well as shortness of breath and dyspnea on exertion. Patient denies chest pain, palpitations, dizziness or syncope or pleuritic pain. Patient with chronic severe arthritis making it difficult to ambulate. Therefore, she spends a lot of her day sitting in a chair. No history of prior VTE, no recent trauma, no periods of immobilization No additional complaints at this time In the ER patient is afebrile, hypertensive otherwise stable. Adequate oxygenation on room air ER course: Normal saline x 1 L Zofran 4 mg IV Heparin drip initiated Amlodipine 5 mg p.o. Specialty Data Hospitalist Discharge diagnosis: Bilateral pulmonary emboli Hyponatremia Discharge assessment: Vital Signs Temp Pulse Pulse Resp BP BP Pulse Ox 02/02/25 12:05 36.6 C 75 16 142/80 H 94 02/02/25 07:20 36.6 C 69 16 172/76 H 89 L 02/02/25 07:00 69 02/02/25 03:15 36.4 C L 79 18 157/73 H 92 02/02/25 00:56 80 18 145/69 H 91 02/02/25 00:21 72 02/01/25 21:52 02/01/25 21:52 36.5 C 80 14 191/71 H 95 02/01/25 21:52 36.5 C 80 16 191/71 H 95 02/01/25 21:33 02/01/25 21:00 87 24 176/79 H 93 02/01/25 20:45 83 24 160/73 H 94 02/01/25 20:30 84 22 151/76 H 95 02/01/25 20:30 82 20 151/76 H 95 02/01/25 20:15 85 22 169/109 H 95 02/01/25 20:11 95 H 20 178/90 H 96 02/01/25 20:10 178/90 H 02/01/25 20:10 84 22 178/90 H 94 02/01/25 20:00 82 22 204/80 H 94 02/01/25 19:30 83 22 194/85 H 94 02/01/25 19:00 83 20 169/72 H 95 02/01/25 18:34 85 02/01/25 18:31 02/01/25 18:30 89 28 H 193/92 H 97 02/01/25 18:00 36.5 C 98 H 18 154/92 H 97 GENERAL: 89 yo well-nourished elderly [place]. Awake, alert, no distress. LUNGS: Clear to auscultation bilaterally. No accessory muscle use. No W/R/R. CARDIOVASCULAR: Regular rate and rhythm. ABDOMEN: Soft, non-tender and non-distended. BS normoactive x 4 quad. EXTREMITIES: Edematous RLE, nontender. No LLE edema. Peripheral pulses +2/4. PSYCHIATRIC: Cooperative. Appropriate mood and affect. SKIN: Warm, dry, intact. No rashes or lesions. Discharge Data Consultations 02/01/25 19:31 ED Decision to Admit Stat Procedures Performed Chest CTA 02/01/25 18:26 CT PULMONARY ANGIOGRAM. HISTORY: Chest pain TECHNIQUE: Enhanced CT examination of the chest was performed using pulmonary embolism protocol. IV CONTRAST: 100 mL of OMNIPAQUE 300 COMPARISON: None FINDINGS: PULMONARY ARTERIES: There are bilateral acute pulmonary emboli. On the right side there is embolus in the distal main pulmonary artery with extensions into the segmental and subsegmental branches of all lobes. On the left side there are pulmonary emboli in the segmental and subsegmental branches of the left upper lobe. LYMPH NODES: No lymphadenopathy by size criteria. CARDIOVASCULAR: Enlarged cardiac size. Mild right heart strain is present at this time. No pericardial effusion. No aortic aneurysm. Extensive atherosclerosis of the thoracic aorta. There are coronary artery calcifications in keeping with coronary artery disease. Valvular calcifications MEDIASTINUM: No solid or cystic mediastinal masses. The esophagus is normally decompressed. LUNGS/PLEURA: The central tracheo-bronchial tree is patent. Small focal density in the right lung base could represent atelectasis, pneumonia or possibly a pulmonary infarct. Mild bronchiolitis in the right middle lobe. No pleural effusion or pneumothorax. No suspicious pulmonary nodules. BONES: No suspicious osseous lesions. VISUALIZED LOWER NECK: Subcentimeter thyroid nodules. VISUALIZED UPPER ABDOMEN: Cholecystectomy. Duodenal diverticula. IMPRESSION: Bilateral pulmonary emboli as above. Cardiomegaly with mild right heart strain. Small focal density in the right lung base could represent atelectasis, pneumonia or possibly a pulmonary infarct. Mild bronchiolitis in the right middle lobe. Notification to clinician of alert: [facility] was notified about above findings by phone on February 01, 2025 at 7:17 PM by Crescencio Richard MD. Readback confirmation was obtained. Electronically signed by Crescencio Richard 02-01-2025 7:20 PM Hospital Course (1) Pulmonary embolism: (2) Acute hyponatremia: (3) Hypothyroidism: Plan 89-year-old female presenting with 2 weeks of right lower extremity swelling and redness as well as dyspnea on exertion and shortness of breath. Patient found to have bilateral pulmonary emboli with cardiomegaly and mild right heart strain noted. Small focus in the right lung base could represent atelectasis, pneumonia or possible pulmonary infarct. Also with mild bronchiolitis in the right middle lobe Patient with no prior VTE. She is rather sedentary in her daily life but otherwise no acute risks to predispose her to clotting #PEpatient hypertensive, adequate oxygenation on room air. PESI score - patient at high risk for severe morbidity given advanced age. Otherwise HD stable. Shock index is within normal limits Suspect RLE DVT as source of PE -Admit to PCU -Transition Heparin gtt to Eliquis, dose now and rx sent to pharmacy -2D echo pending-noted mild right heart strain on CTA and small possible pulmonary infarct -Saturating 94% on room air -No evidence of decompensated CHF -Recommend 6 months of anticoagulation on discharge w/ OP hypercoagulable panel when DOAC stopped #Acute hyponatremia - Ig=321. Tnxw=196. -Urine osmolality 188 and serum osmolality 277 -Random urine Na=24 -Repeat Na level this AM 132 #Hypertension - patient with elevated blood pressures. Reports that her BP is typically 130-140's at home. She is compliant with her home medications -Continue Amlodipine 5mg po qPM -Continue Carvedilol 3.125mg po BID #Hypothyroidism - TSH last checked 12/18/24, WNL at 1.472 -Continue Synthroid -Incidental finding of subcentimeter nodules on imaging, can be f/u as outpatient PT/OT eval performed, pt did well and at her baseline. She is medically and hemodynamically stable for discharge. Family agreeable to her discharge home with home health. Will arrange through . Family also indicates that patient will be moving in with daughter to live with them by end of summer to ensure she has adequate care. Total discharge time: 38 minutes Coding Level of Care Code 44815 INP/OBS DISCH >30 MIN Diagnoses Pulmonary embolism I26.99 Acute hyponatremia E87.1 Hypothyroidism E03.9
[2025-02-02] MEDS: APIXABAN 5 MG TABLET PO ONE (13:38)
--- NOTE | 2025-02-02 14:21 | Communication Note ---
Date of Service: February 02, 2025 By CMS guidelines, a determination that the admission or continued stay is not medically necessary has been made by a member of the UR committee and a phys ician for this hospital stay, therefore a Code 44 will be completed and the Inpatient admission will be changed to outpatient.
--- NOTE | 2025-02-02 17:37 | XCELERA ---
[id number]
[2025-02-02] MEDS ORDERED: amLODIPine BESYLATE 5 MG TAB PO SCH (21:00)
--- NOTE | 2025-02-03 06:58 | Electrocardiogram Report ---
Test Reason : Blood Pressure : */* mmHG Vent. Rate : 94 BPM Atrial Rate : 94 BPM P-R Int : 116 ms QRS Dur : 120 ms QT Int : 360 ms P-R-T Axes : 57 -29 84 degrees QTcB Int : 450 ms Normal sinus rhythm Left bundle branch block Abnormal ECG Confirmed by Lux Chowdhury ([id number]) on 02/03/2025 6:58:37 AM Referred By: Confirmed By: Lux Chowdhury
== END 2025-02-02 16:33 | disposition home health service (06) | DRG 299 ==
LOC: ED 17:53 → SUATTDRO 20:21 → 4W 20:21 → INTOOBSV 20:21 → 4W 21:33